=== PATIENT | male | born 1955 | race Caucasian/White ===

== ENCOUNTER 2016-11-05 05:55 | Outpatient (CLI) | payer BC ==
[~2016-11-05] VITALS: Ht 177.8 cm; Wt 93.0 kg
[2016-11-05] MEDS ORDERED: HYDR-3812 PO (11:01)
[2016-11-05] MEDS ORDERED: TRAZ150T72 PO (11:01)
[2016-11-05] MEDS ORDERED: ALPR0.5T PO (11:01)
[2016-11-05] MEDS ORDERED: VIT1CAPS9 PO (11:01)
[2016-11-05] MEDS ORDERED: VITA-189 PO (11:01)
[2016-11-05] MEDS ORDERED: NAPR-1033 PO (11:01)
[2016-11-05] MEDS ORDERED: TEMA30CA PO (11:01)
[2016-11-05] MEDS ORDERED: CETI10TA20 PO (11:01)
[2016-11-05] MEDS ORDERED: OMEG100032 PO (11:01)
[2016-11-05] MEDS ORDERED: NF-NI250ER PO (11:01)
[2016-11-05] MEDS ORDERED: LANS15CA5 PO (11:01)
[2016-11-05] MEDS ORDERED: LISI10TA2 PO (11:01)
[2016-11-05] MEDS ORDERED: ASPI-586 PO (11:01)
== END 2016-11-05 11:02 ==
LOC: PREOP 05:55
PROVIDERS: ATTEND Otolaryngology Otolaryngology/Facial Plastic Surgery
DX: Z01.818 Encounter for other preprocedural examination (principal); L98.9 Disorder of the skin and subcutaneous tissue, unspecified

== ENCOUNTER 2016-11-07 05:53 | Day surgery (SDC) | payer BC, OTHER ==
[~2016-11-07] VITALS: Ht 177.8 cm; Wt 93.0 kg
[~2016-11-07 05:53] MED LIST: ALPR0.5T PO; ASPI-586 PO; CETI10TA20 PO; HYDR-3812 PO; LANS15CA5 PO; LISI10TA2 PO; NAPR-1033 PO; NF-NI250ER PO; OMEG100032 PO; TEMA30CA PO; TRAZ150T72 PO; VIT1CAPS9 PO; VITA-189 PO
[2016-11-07] MEDS ORDERED: LACTATED RINGERS 1,000 ML IV PRN (06:27)
--- NOTE | 2016-11-07 06:32 | Progress Note-Pre Operative ---
Pre-Operative Progress Note H&P Reviewed The H&P was reviewed, patient examined and no changes noted. Date Seen by Provider: Nov 07, 2016 Time Seen by Provider: 06:30 Date H&P Reviewed: Nov 07, 2016 Time H&P Reviewed: :30 Pre-Operative Diagnosis: Left SCalp Lesions TONE PEÑALOZA MD Nov 07, 2016 6:32 am
[2016-11-07 06:45] LABS: BASOPHILS % (AUTO) 0 % (0-10); EOSINOPHILS # (AUTO) 0.4 10^3/uL (0.0-0.3); EOSINOPHILS % (AUTO) 6 % (0-10); LYMPHOCYTES # (AUTO) 2.2 X 10^3 (1.0-4.0); LYMPHOCYTES % (AUTO) 32 % (12-44); MEAN CORPUSCULAR HEMOGLOBIN 32 PG (25-34); MEAN CORPUSCULAR HGB CONC 34 G/DL (32-36); MEAN CORPUSCULAR VOLUME 93 FL (80-99); MEAN PLATELET VOLUME 9.3 FL (7.4-10.4); MONOCYTES # (AUTO) 0.4 X 10^3 (0.0-1.0); MONOCYTES % (AUTO) 6 % (0-12); NEUTROPHILS # (AUTO) 3.8 X 10^3 (1.8-7.8); NEUTROPHILS % (AUTO) 56 % (42-75); PLATELET COUNT 206 10^3/uL (130-400); RED BLOOD COUNT 4.67 10^6/uL (4.35-5.85); RED CELL DISTRIBUTION WIDTH 12.9 % (10.0-14.5); WHITE BLOOD COUNT 6.7 10^3/uL (4.3-11.0)
[2016-11-07] MEDS ORDERED: SEVOFLURANE (ULTANE) 15 ML INHAL SOLN ONE (06:58)
[2016-11-07] MEDS ORDERED: LIDOCAINE PF 2% 5 ML (XYLOCAINE) VIAL ONE (06:58)
[2016-11-07] MEDS ORDERED: proPOfol 200 MG/20 ML (DIPRIVAN) VIAL IV ONE (06:58)
[2016-11-07] MEDS ORDERED: DEXAMETHASONE PF 10 MG/ML (DECADRON) VIAL ONE (06:58)
[2016-11-07] MEDS ORDERED: fentaNYL INJECTION 100 MCG/2 ML AMP ONE (06:58)
[2016-11-07] MEDS ORDERED: ONDANSETRON 4 MG/2 ML (SDV) Z0FRAN ONE (06:58)
[2016-11-07] MEDS ORDERED: MIDAZOLAM 2 MG/2 ML (VERSED) VIAL ONE (06:59)
[2016-11-07 07:02] LABS: ANION GAP 10 MMOL/L (5-14); BLOOD UREA NITROGEN 15 MG/DL (7-18); BUN/CREATININE RATIO 18; CALCIUM 9.2 MG/DL (8.5-10.1); CARBON DIOXIDE 20 MMOL/L (21-32); CHLORIDE 110 MMOL/L (98-107); CREATININE SERUM 0.82 MG/DL (0.60-1.30); GFR ESTIMATED > 60; GLUCOSE 87 MG/DL (70-105); POTASSIUM 4.3 MMOL/L (3.6-5.0); SODIUM 140 MMOL/L (135-145)
[2016-11-07] MEDS ORDERED: LIDOCAINE/EPI 1%-1:200,000 (XYLOCAINE) 30 ML VIAL ONE (07:05)
[2016-11-07 07:13] VITALS: BP 119/76
[2016-11-07] MEDS ORDERED: PHENYLEPHRINE 100 MCG/ML 10 ML (ANESTHESIA) SYR ONE (07:58)
[2016-11-07] MEDS ORDERED: MUPIROCIN 2% OINT 22 GM (BACTROBAN) TUBE ONE (08:13)
--- NOTE | 2016-11-07 08:40 | Progress Note-Post Operative ---
Post-Operative Progess Note Surgeon (s)/Tech Writer (s) Surgeon TONE PEÑALOZA MD Tech Writer n/a Pre-Operative Diagnosis Left SCalp Lesions Post-Operative Diagnosis same Post-Op Procedure Note Date of Procedure: Nov 07, 2016 Name of Procedure Performed: Excision of Left Scalp Lesions with INtermediate REpair Description & Findings Description and Findings: n/a Anesthesia Type get Estimated Blood Loss minimal Packing none. Specimen(s) collected/removed left post scalp lesion-basal cell with clear margins ant scalp-clinically lipoma TONE PEÑALOZA MD Nov 07, 2016 8:40 am
[2016-11-07] MEDS ORDERED: ACETAMINOPHEN 325 MG TABLET/CAPLET (TYLENOL) PO PRN (08:45)
[2016-11-07] MEDS ORDERED: HYDROcodone/APAP 5 MG/325 MG (LORTAB) TAB PO PRN (08:45)
[2016-11-07] MEDS ORDERED: ONDANSETRON 4 MG/2 ML (SDV) Z0FRAN IVP PRN (09:00)
[2016-11-07] MEDS ORDERED: morphine INJ 10 MG/ML 1ML (SYR OR VIAL) IVP PRN (09:00)
[2016-11-07 09:35] VITALS: BP 122/75
[2016-11-07] MEDS ORDERED: HYDR-3812 PO (09:46)
[2016-11-07 10:05] VITALS: BP 119/74
[2016-11-07 10:09] VITALS: BP 119/74
== END 2016-11-07 10:10 | disposition home or self-care (01) ==
LOC: SDC 05:53
PROVIDERS: ATTEND Otolaryngology Otolaryngology/Facial Plastic Surgery
DX: C44.41 Basal cell carcinoma of skin of scalp and neck (principal); D17.0 Benign lipomatous neoplasm of skin and subcutaneous tissue of head, face and neck; I10 Essential (primary) hypertension; Z79.899 Other long term (current) drug therapy
CPT/HCPCS: 36415; 80048; 85025; 87081

== ENCOUNTER 2017-07-28 05:37 | Outpatient (CLI) | payer BC ==
[~2017-07-28] VITALS: Ht 177.8 cm; Wt 93.0 kg
[~2017-07-28 05:37] MED LIST changes: +ACHD5005 PO; -HYDR-3812 PO
[2017-07-28] MEDS ORDERED: TRAZ-28 PO (10:03)
[2017-07-28] MEDS ORDERED: EZET10TA5 PO (10:03)
[2017-07-28] MEDS ORDERED: MELA1TAB16 PO (10:03)
== END 2017-07-28 10:13 ==
LOC: PREOP 05:37
PROVIDERS: ATTEND Urology
DX: Z01.818 Encounter for other preprocedural examination (principal); C61 Malignant neoplasm of prostate; Z79.82 Long term (current) use of aspirin

== ENCOUNTER 2017-08-01 09:59 | Day surgery (SDC) | payer BC ==
[~2017-08-01] VITALS: Ht 177.8 cm; Wt 93.0 kg
[~2017-08-01 09:59] MED LIST changes: +EZET10TA5 PO; +MELA1TAB16 PO; +TRAZ-28 PO
[2017-08-01 10:30] VITALS: BP 106/72
[2017-08-01] MEDS ORDERED: fentaNYL INJECTION 100 MCG/2 ML AMP ONE (10:51)
[2017-08-01] MEDS ORDERED: MIDAZOLAM 2 MG/2 ML (VERSED) VIAL ONE (10:52)
[2017-08-01] MEDS ORDERED: LEVOFLOXACIN 500 MG/100 ML IV 100 ML IV ONE (11:00)
--- NOTE | 2017-08-01 11:27 | Progress Note-Pre Operative ---
Pre-Operative Progress Note H&P Reviewed The H&P was reviewed, patient examined and no changes noted. Date Seen by Provider: Aug 01, 2017 Time Seen by Provider: : Date H&P Reviewed: Aug 01, 2017 Time H&P Reviewed: : Pre-Operative Diagnosis: CA PROSTATE AND SCROTAL CYST STUART JAIME MD Aug 01, 2017 11:27 am
--- NOTE | 2017-08-01 11:32 | Discharge Inst-Urology ---
Discharge Inst-Urology Discharge Medications New, Converted, or Re-newed RX: RX on Chart Patient Instructions/Follow Up Plan Discharge with asif and leg bag day time and large bag night time with instructions Office Friday 08/04 at 9am to DC Asif and 2 weeks later to see me, rest till then Increase oral fluids for 48 hours and then as needed. Diet as tolerated. If questions or concerns contact your physician Or seek help at emergency department. STUART JAIME MD Aug 01, 2017 11:32 am
[2017-08-01] MEDS ORDERED: LACTATED RINGERS 1,000 ML IV PRN (13:27)
[2017-08-01] MEDS ORDERED: ROCURONIUM 10 MG/ML 5 ML SYRINGE IV ONE (13:51)
[2017-08-01] MEDS ORDERED: LIDOCAINE PF 2% 5 ML (XYLOCAINE) VIAL ONE (13:51)
[2017-08-01] MEDS ORDERED: proPOfol 200 MG/20 ML (DIPRIVAN) VIAL IV ONE (13:51)
[2017-08-01] MEDS ORDERED: ONDANSETRON 4 MG/2 ML (SDV) Z0FRAN ONE (13:51)
[2017-08-01] MEDS ORDERED: SEVOFLURANE (ULTANE) 15 ML INHAL SOLN ONE ×3 (13:52→14:02)
--- NOTE | 2017-08-01 14:17 | Progress Note-Post Operative ---
Post-Operative Progess Note Surgeon (s)/Trailer Body Assembler (s) Surgeon STUART JAIME MD Trailer Body Assembler: N/A Pre-Operative Diagnosis CA PROSTATE AND SCROTAL CYST Post-Operative Diagnosis SAME Procedure & Operative Findings Date of Procedure 08/01/17 Procedure Performed/Findings EXCISION OF SCROTAL CYST, BRACHYTHERAPY, INSERTION OF PROSTATE RECTAL SPACER AND CYSTOGRAM Anesthesia Type GENERAL Estimated Blood Loss Estimated blood loss (mL): NEGLIGIBLE Specimens/Packing Specimens Removed SCROTAL CYST Packing: N/A STUART JAIME MD Aug 01, 2017 2:17 pm
--- NOTE | 2017-08-01 14:29 | Anesthesia-General Post-Op ---
General Patient Condition Mental Status/LOC: Same as Preop Cardiovascular: Satisfactory Nausea/Vomiting: Absent Respiratory: Satisfactory Pain: Controlled Complications: Absent Post Op Complications Complications None Follow Up Care/Instructions Patient Instructions None needed. Anesthesia/Patient Condition Patient Condition Patient is doing well, no complaints, stable vital signs, no apparent adverse anesthesia problems. No complications reported per nursing. NAIN NESS CRNA Aug 01, 2017 14:29
[2017-08-01] MEDS ORDERED: ONDANSETRON 4 MG/2 ML (SDV) Z0FRAN IVP PRN (14:30)
[2017-08-01] MEDS ORDERED: morphine INJ 10 MG/ML 1ML (SYR OR VIAL) IVP PRN (14:30)
[2017-08-01] MEDS: MEPERIDINE (DEMEROL) INJ 50 MG/ML IVP PRN ×2 (15:05→15:20)
--- NOTE | 2017-08-01 15:37 | OPERATIVE REPORT ---
DATE OF SERVICE: 08/01/2017 PREOPERATIVE DIAGNOSIS: Scrotal sebaceous cyst. POSTOPERATIVE DIAGNOSIS: Scrotal sebaceous cyst. OPERATION PERFORMED: Excision of scrotal sebaceous cyst. SURGEON: Arian Jaime MD ANESTHESIA: General. COMPLICATIONS: None. DESCRIPTION OF PROCEDURE: Under satisfactory general anesthesia, the patient in supine position, genitalia were prepped and draped in usual sterile fashion. The scrotal sebaceous cyst was completely excised without rupturing it. The edges of the scrotum were sutured with a 4-0 chromic catgut interrupted sutures. Dressing was applied. The patient tolerated the procedure and anesthesia well and procedure after that would be combined surgery with Dr. Silverman that we will dictate. Job ID: [id number] DocumentID: [id number] Dictated Date: 08/01/2017 12:47:42 Stockholder Date: 08/01/2017 15:36:37 Dictated By: ARIAN JAIME MD
[2017-08-01 15:50] VITALS: BP 124/70
[2017-08-01 16:20] VITALS: BP 114/70
[2017-08-01 16:50] VITALS: BP 118/76
--- NOTE | 2017-08-01 17:05 | Diagnostic Imaging Report ---
Indication: Brachytherapy with fluoroscopic. Comparison: None available. Findings and Impression: Multiple fluoroscopic images were obtained during brachytherapy. A total of 15.9 seconds or fluoroscopy was utilized for this procedure. Please see operative report for complete details. Dictated by: Dictated on workstation # [id number]
== END 2017-08-01 16:50 | disposition home or self-care (01) ==
LOC: SDC 09:59
PROVIDERS: ATTEND Radiology Radiation Oncology
DX: C61 Malignant neoplasm of prostate (principal); D29.4 Benign neoplasm of scrotum; I10 Essential (primary) hypertension; G57.92 Unspecified mononeuropathy of left lower limb; Z79.82 Long term (current) use of aspirin; Z79.899 Other long term (current) drug therapy
CPT/HCPCS: 76965; 77290; 77318; 77332; 77336; 77470; 77778; 87081

== ENCOUNTER 2017-08-28 10:24 | Outpatient (RCR) | payer BC | END 2017-09-29 | disposition home or self-care (01) | LOC: ONC 10:24 | PROVIDERS: ATTEND Radiology Radiation Oncology | DX: Z51.0 Encounter for antineoplastic radiation therapy (principal); C61 Malignant neoplasm of prostate | CPT/HCPCS: 76873; 77290; 77331; 99205 ==

== ENCOUNTER 2017-09-30 02:45 | Outpatient (RCR) | payer BC ==
[~2017-09-30 02:45] MED LIST changes: +TRAZ-189 PO; -TRAZ-28 PO
== END 2017-12-29 | disposition home or self-care (01) ==
LOC: ONC 02:45
PROVIDERS: ATTEND Radiology Radiation Oncology
DX: C61 Malignant neoplasm of prostate (principal)
CPT/HCPCS: 77295; 77336

== ENCOUNTER → 2019-04-15 | Outpatient (CLI) | payer BC ==
[~2019-04-15] MED LIST changes: +OCUVITE SOFTGE1 EACH PO; -TRAZ-189 PO; +TRAZ-222 PO; -VIT1CAPS9 PO
[2019-04-15 10:41] LABS: HEMOGLOBIN 14.7 G/DL (13.3-17.7); WHITE BLOOD COUNT 6.2 10^3/uL (4.3-11.0)
[2019-04-15 10:42] LABS: ALKALINE PHOSPHATASE 64 U/L (40-136); BILIRUBIN,TOTAL 0.5 MG/DL (0.1-1.0); BUN/CREATININE RATIO 14; CALCIUM 9.5 MG/DL (8.5-10.1); CARBON DIOXIDE 26 MMOL/L (21-32); CHLORIDE 104 MMOL/L (98-107); CREATININE SERUM 0.92 MG/DL (0.60-1.30); GFR ESTIMATED > 60; GLUCOSE 109 MG/DL (70-105); MEAN PLATELET VOLUME 9.1 FL (7.4-10.4); POTASSIUM 4.4 MMOL/L (3.6-5.0); RED CELL DISTRIBUTION WIDTH 12.7 % (10.0-14.5); SODIUM 141 MMOL/L (135-145)
[2019-04-15 10:43] LABS: ALANINE AMINOTRANSFERASE 18 U/L (0-55); TOTAL PROTEIN 6.1 GM/DL (6.4-8.2)
== END ==
LOC: LAB FS 08:31
PROVIDERS: ATTEND Urology
DX: C61 Malignant neoplasm of prostate (principal)
CPT/HCPCS: 36415; 80053; 84153; 84403; 85027

== ENCOUNTER 2019-07-29 14:05 | Emergency (ER) | payer BC ==
[~2019-07-29] VITALS: Ht 180.4 cm; Wt 93.0 kg
[~2019-07-29 14:05] MED LIST changes: -CETI10TA20 PO; +CETI10TA21 PO; +EZET10TA17 PO; -EZET10TA5 PO; -NF-NI250ER PO; -TRAZ-222 PO; +TRZ50T PO; +[UNRECOGNIZED DRUG - CODE] PO
[2019-07-29] MEDS ORDERED: ASPIRIN 81 MG CHEW (CHILDREN'S ASA) PO ONE (14:30)
--- NOTE | 2019-07-29 14:39 | ED Respiratory ---
General Chief Complaint: Respiratory Problems Stated Complaint: SOA Nursing Triage Note: Pt amb to [facility] with c/o SOA et cough. Pt reports on 07/25/19 he was swabbed for COVID-19 at [facility] in [place] et is awaiting results. Pt reports low grade fever on 07/24/19 et 07/25/19, but denies fever since. Pt reports while at [facility] on 07/25/19 he was swabbed for inlfuenza et strep throat with results coming back negative. Initial SPO2 96% via RA. Pt reports increase in moist, cough at HS, upon rise, et throughout evenings. A&OX4. Source: patient Exam Limitations: no limitations History of Present Illness Date Seen by Provider: Jul 29, 2019 Time Seen by Provider: 14:20 Initial Comments This 64 year old gentleman presents to the ER with primary complaint of shortness of breath and cough. He reports fever on July 23 and . He was swabbed for strep and influenza at [facility] on the . Subsequent COVID-19 swab is still pending. He developed some chest tightness and discomfort in the right chest yesterday. That seems to be improved today. At present he is afebrile but mildly tachycardic. He feels mildly short of breath, especially with exertion. Allergies and Home Medications Allergies Coded Allergies: Penicillins (Verified Allergy, Unknown, RASH, 11/05/16) latex (Verified Allergy, Unknown, RASH, 11/05/16) Home Medications Alprazolam 0.5 Mg Tablet, 0.5 MG PO TID PRN for ANXIETY, (Reported) Cetirizine HCl 10 Mg Tablet, 10 MG PO HS, (Reported) Ezetimibe 10 Mg Tablet, 10 MG PO DAILY, (Reported) Lansoprazole 15 Mg Capsule.dr, 15 MG PO DAILY, (Reported) Lisinopril 10 Mg Tablet, 10 MG PO DAILY, (Reported) Melatonin/Pyridoxine HCl (B6) 1 Each Tablet, 5 MG PO HS, (Reported) Naproxen Sodium 220 Mg Tablet, 440 MG PO DAILY, (Reported) take 2 (220mg) tabs Niacin 250 Mg Tablet.sa, 500 MG PO HS, (Reported) take 2 (250mg) tabs Seneca-3/Dha/Epa/Fish Oil 1,000 Mg Capsule, 2,000 MG PO BID, (Reported) take 2 (1,000mg) tabs Temazepam 30 Mg Capsule, 30 MG PO HS PRN for INSOMNIA, (Reported) Trazodone HCl 50 Mg Tablet, 75 MG PO HS, (Reported) take 1 1/2 of 50mg tab for 75mg total Vit C/Vit E/Lutein/Min/Seneca-3 1 Each Capsule, 1 EACH PO DAILY, (Reported) Vitamin B Complex 1 Each Tablet, 1 EACH PO DAILY, (Reported) Patient Home Medication List Home Medication List Reviewed: Yes Review of Systems Review of Systems Constitutional: see HPI EENTM: no symptoms reported Respiratory: see HPI Cardiovascular: see HPI Gastrointestinal: no symptoms reported Genitourinary: no symptoms reported Musculoskeletal: no symptoms reported Skin: no symptoms reported Psychiatric/Neurological: No Symptoms Reported Hematologic/Lymphatic: No Symptoms Reported Immunological/Allergic: no symptoms reported Past Wbwjqzn-Tcropq-Azpkpu Hx Past Med/Social Hx: Reviewed and Corrections made Patient Social History Recent Foreign Travel: No Contact w/Someone Who Travel: No Recent Infectious Disease Expo: No Recent Hopitalizations: No Immunizations Up To Date Date of Influenza Vaccine: Jan 27, 2017 Seasonal Allergies Seasonal Allergies: Yes Past Medical History Surgeries: Yes Tonsillectomy, Vasectomy Respiratory: No Cardiac: Yes High Cholesterol, Hypertension Neurological: No Genitourinary: Yes Prostate Problems Gastrointestinal: No Musculoskeletal: Yes Arthritis Endocrine: No HEENT: No Cancer: Yes Prostate Did You Recieve Any Treatments: Yes What Type of Treatment Did You: Radiation (brachytherapy) Psychosocial: Yes Sleep Difficulties Physical Exam Vital Signs - First Documented 07/29/19 14:05 Temp 36.9 Pulse 98 Resp 20 B/P (MAP) 128/93 (105) Pulse Ox 96 O2 Delivery Room Air Capillary Refill : Less Than 3 Seconds Height: 5'10.00" Weight: 205lbs. 0.0oz. [id number]; 28.00 BMI Method: General Appearance: WD/WN, no apparent distress HEENT: PERRL/EOMI, normal ENT inspection, pharynx normal Neck: normal inspection Respiratory: lungs clear, normal breath sounds, no respiratory distress, no accessory muscle use Cardiovascular: no edema, no murmur, tachycardia Gastrointestinal: normal bowel sounds, non tender, soft Extremities: non-tender, normal inspection, no pedal edema, no calf tenderness Neurologic/Psychiatric: performance improvement director II-XII nml as tested, no motor/sensory deficits, alert, normal mood/affect, oriented x 3 Skin: normal color, warm/dry Progress/Results/Core Measures Suspected Sepsis Recent Fever Within 48 Hours: No Infection Criteria Present: Suspected New Infection New/Unexplained Altered Menta: No Sepsis Screen: No Definite Risk SIRS Temperature: Pulse: 98 Respiratory Rate: 20 Laboratory Tests 07/29/19 14:34: White Blood Count 8.9 Blood Pressure 128 /93 Mean: 105 Laboratory Tests 07/29/19 14:34: Creatinine 0.88, INR Comment 1.1, Platelet Count 230, Total Bilirubin 0.4 Results/Orders Lab Results Laboratory Tests Test 07/29/19 14:34 Range/Units White Blood Count 8.9 4.3-11.0 10^3/uL Red Blood Count 5.11 4.35-5.85 10^6/uL Hemoglobin 15.8 13.3-17.7 G/DL Hematocrit 46 40-54 % Mean Corpuscular Volume 91 80-99 FL Mean Corpuscular Hemoglobin 31 25-34 PG Mean Corpuscular Hemoglobin Concent 34 32-36 G/DL Red Cell Distribution Width 13.8 10.0-14.5 % Platelet Count 230 130-400 10^3/uL Mean Platelet Volume 9.0 7.4-10.4 FL Neutrophils (%) (Auto) 69 42-75 % Lymphocytes (%) (Auto) 20 12-44 % Monocytes (%) (Auto) 7 0-12 % Eosinophils (%) (Auto) 4 0-10 % Basophils (%) (Auto) 0 0-10 % Neutrophils # (Auto) 6.1 1.8-7.8 X 10^3 Lymphocytes # (Auto) 1.8 1.0-4.0 X 10^3 Monocytes # (Auto) 0.6 0.0-1.0 X 10^3 Eosinophils # (Auto) 0.3 0.0-0.3 10^3/uL Basophils # (Auto) 0.0 0.0-0.1 10^3/uL Erythrocyte Sedimentation Rate 9 0-30 MM/HR Prothrombin Time 14.5 12.2-14.7 SEC INR Comment 1.1 0.8-1.4 Activated Partial Thromboplast Time 30 24-35 SEC D-Dimer 0.42 0.00-0.49 UG/ML Sodium Level 139 135-145 MMOL/L Potassium Level 4.2 3.6-5.0 MMOL/L Chloride Level 106 98-107 MMOL/L Carbon Dioxide Level 21 21-32 MMOL/L Anion Gap 12 5-14 MMOL/L Blood Urea Nitrogen 12 7-18 MG/DL Creatinine 0.88 0.60-1.30 MG/DL Estimat Glomerular Filtration Rate > 60 BUN/Creatinine Ratio 14 Glucose Level 100 70-105 MG/DL Calcium Level 9.2 8.5-10.1 MG/DL Corrected Calcium 9.1 8.5-10.1 MG/DL Magnesium Level 1.9 1.6-2.4 MG/DL Total Bilirubin 0.4 0.1-1.0 MG/DL Aspartate Amino Transf (AST/SGOT) 18 5-34 U/L Alanine Aminotransferase (ALT/SGPT) 18 0-55 U/L Alkaline Phosphatase 60 40-136 U/L Lactate Dehydrogenase 238 H 125-220 U/L Myoglobin 43.3 10.0-92.0 NG/ML Troponin I < 0.028 <0.028 NG/ML C-Reactive Protein High Sensitivity 1.73 H 0.00-0.50 MG/DL Total Protein 6.9 6.4-8.2 GM/DL Albumin 4.1 3.2-4.5 GM/DL Procalcitonin 0.02 <0.10 NG/ML My Orders Orders - FEDE ALONSO MD Ferritin (07/29/19 14:30) Fibrin Degradation Products (07/29/19 14:30) Procalcitonin (Pct) (07/29/19 14:30) Hs C Reactive Protein (07/29/19 14:30) Erythrocyte Sedimentation Rate (07/29/19 14:30) Cbc With Automated Diff (07/29/19 14:30) Magnesium (07/29/19 14:30) Chest 1 View, Ap/Pa Only (07/29/19 14:30) Ekg Tracing (07/29/19 14:30) Comprehensive Metabolic Panel (07/29/19 14:30) Myoglobin Serum (07/29/19 14:30) Protime With Inr (07/29/19 14:30) Partial Thromboplastin Time (07/29/19 14:30) O2 (07/29/19 14:30) Monitor-Rhythm Ecg Trace Only (07/29/19 14:30) Lipid Panel (07/30/19 06:00) Ed Iv/Invasive Line Start (07/29/19 14:30) Troponin I (07/29/19 14:30) Aspirin Chewable Tablet (Baby Aspirin Ch (07/29/19 14:30) LDH (07/29/19 14:40) Medications Given in ED Current Medications Medications Dose Ordered Sig/Gonzalez Route Start Time Stop Time Status Last Admin Dose Admin Aspirin 324 mg ONCE ONCE PO 07/29/19 14:30 07/29/19 14:32 DC 07/29/19 15:03 324 MG Vital Signs/I&O 07/29/19 07/29/19 14:05 15:08 Temp 36.9 Pulse 98 92 Resp 20 19 B/P (MAP) 128/93 (105) 122/82 (95) Pulse Ox 96 95 O2 Delivery Room Air Room Air Capillary Refill : Less Than 3 Seconds Blood Pressure Mean: 105 Progress Note : Progress Note Workup was relatively unremarkable. He had no evidence of pneumonia. Oxygen saturations stayed 92 percent and above throughout his ER stay. Symptoms were actually improved from yesterday. His COVID-19 testing was still pending. He did have some wheezing on forced expiration. He has a prescription on file for an albuterol inhaler which he intends to fill and use as needed. Patient was advised to follow-up with his primary care provider regarding the right bundle branch block on his EKG. He reports he was part of a post prostate cancer cardiology study a few years ago and there was no issue with his cardiac health at that time. ECG Initial ECG Impression Date: Jul 29, 2019 Initial ECG Impression Time: 15:03 Initial ECG Rate: 98 Initial ECG Rhythm: S.Tach Comment Sinus tachycardia with right bundle branch block. No ischemic ST elevation or depression. Diagnostic Imaging Diagonstic Imaging: Xray Plain Films/CT/US/NM/MRI: chest Comments Chest x-ray viewed by me and report reviewed. See report below: NAME: STEPHAN JOHNSON [facility] REC#: [id number] PT STATUS: REG ER : 1955 PHYSICIAN: FEDE ALONSO MD ADMIT DATE: 07/29/19/ER Draft Date of Exam:07/29/19 CHEST 1 VIEW, AP/PA ONLY Indication: Shortness of breath and cough. Time of exam 3:23 PM No prior studies are available for comparison. The heart size is normal. The pulmonary vascularity is unremarkable. The lungs are clear. No infiltrate, effusion or pneumothorax is detected. Impression: No acute cardiopulmonary process is detected. Dictated on workstation # [id number] Dict: 07/29/19 1537 Trans: 07/29/19 1537 [facility] [id number] Interpreted by: HUDSON SHAFFER MD Departure Impression Primary Impression: Shortness of breath Additional Impressions: Acute chest pain Right bundle branch block Disposition: HOME, SELF-CARE Condition: Improved Departure-Patient Inst. Decision time for Depature: 15:49 Referrals: ISABELL LOWE MD (PCP/Family) Primary Care Physician Patient Instructions: COVID19, Chest Pain Add. Discharge Instructions: Drink plenty of clear liquids to stay well-hydrated. Take Tylenol (acetaminophen) up to 1000 mg every 6 hours as needed for pain or fever. Return to care if you have worsening of shortness of breath or other symptoms. When you are over this acute illness, please follow-up with your primary care provider to discuss your EKG and right bundle branch block. All discharge instructions reviewed with patient and/or family. Voiced understanding. FEDE ALONSO MD Jul 29, 2019 14:39
[2019-07-29 14:55] LABS: BASOPHILS % (AUTO) 0 % (0-10); EOSINOPHILS # (AUTO) 0.3 10^3/uL (0.0-0.3); EOSINOPHILS % (AUTO) 4 % (0-10); HEMATOCRIT 46 % (40-54); HEMOGLOBIN 15.8 G/DL (13.3-17.7); LYMPHOCYTES # (AUTO) 1.8 X 10^3 (1.0-4.0); LYMPHOCYTES % (AUTO) 20 % (12-44); MEAN CORPUSCULAR HEMOGLOBIN 31 PG (25-34); MEAN CORPUSCULAR HGB CONC 34 G/DL (32-36); MEAN CORPUSCULAR VOLUME 91 FL (80-99); MONOCYTES # (AUTO) 0.6 X 10^3 (0.0-1.0); MONOCYTES % (AUTO) 7 % (0-12); NEUTROPHILS # (AUTO) 6.1 X 10^3 (1.8-7.8); NEUTROPHILS % (AUTO) 69 % (42-75); PLATELET COUNT 230 10^3/uL (130-400); RED CELL DISTRIBUTION WIDTH 13.8 % (10.0-14.5); WHITE BLOOD COUNT 8.9 10^3/uL (4.3-11.0)
[2019-07-29 15:04] LABS: INR 1.1 (0.8-1.4); PROTHROMBIN TIME PATIENT 14.5 SEC (12.2-14.7)
[2019-07-29 15:08] VITALS: BP 122/82
[2019-07-29 15:13] LABS: ALANINE AMINOTRANSFERASE 18 U/L (0-55); ALBUMIN 4.1 GM/DL (3.2-4.5); ALKALINE PHOSPHATASE 60 U/L (40-136); BILIRUBIN,TOTAL 0.4 MG/DL (0.1-1.0); BUN/CREATININE RATIO 14; CALCIUM 9.2 MG/DL (8.5-10.1); CARBON DIOXIDE 21 MMOL/L (21-32); CHLORIDE 106 MMOL/L (98-107); CREATININE SERUM 0.88 MG/DL (0.60-1.30); GFR ESTIMATED > 60; GLUCOSE 100 MG/DL (70-105); MAGNESIUM 1.9 MG/DL (1.6-2.4); POTASSIUM 4.2 MMOL/L (3.6-5.0); SODIUM 139 MMOL/L (135-145); TOTAL PROTEIN 6.9 GM/DL (6.4-8.2)
--- NOTE | 2019-07-29 15:38 | Diagnostic Imaging Report ---
Indication: Shortness of breath and cough. Time of exam 3:23 PM No prior studies are available for comparison. The heart size is normal. The pulmonary vascularity is unremarkable. The lungs are clear. No infiltrate, effusion or pneumothorax is detected. Impression: No acute cardiopulmonary process is detected. Dictated by: Dictated on workstation # [id number]
[2019-07-29 15:57] VITALS: BP 125/99
== END 2019-07-29 16:01 | disposition home or self-care (01) ==
LOC: EDUNIT# 14:12 → ER 14:13
DX: R06.02 Shortness of breath (principal); R07.9 Chest pain, unspecified; I45.10 Unspecified right bundle-branch block; E78.00 Pure hypercholesterolemia, unspecified; I10 Essential (primary) hypertension; M19.91 Primary osteoarthritis, unspecified site; Z85.46 Personal history of malignant neoplasm of prostate; Z92.3 Personal history of irradiation
CPT/HCPCS: 36415; 71045; 80053; 82728; 83615; 83735; 83874; 84145; 84484; 85025; 85379; 85610; 85652; 85730; 86141; 93041

== ENCOUNTER → 2019-08-03 | Outpatient (CLI) | payer BC ==
--- NOTE | 2019-08-03 15:09 | Diagnostic Imaging Report ---
INDICATION: Cough and fever. TIME OF EXAM: 2:38 PM. COMPARISON: Correlation is made with the prior chest from 07/29/2019. FINDINGS: The heart size is normal. The pulmonary vascularity is unremarkable. The lungs are clear. No infiltrate, effusion, or pneumothorax is detected. IMPRESSION: No acute cardiopulmonary process is detected. Dictated by: Dictated on workstation # [id number]
== END ==
LOC: RAD FS 14:14
PROVIDERS: ATTEND Nurse Practitioner Family
DX: R06.02 Shortness of breath (principal)
CPT/HCPCS: 71046

== ENCOUNTER → 2019-09-30 | Outpatient (CLI) | payer BC | LOC: LAB FS 09:19 | PROVIDERS: ATTEND Urology | DX: C61 Malignant neoplasm of prostate (principal) | CPT/HCPCS: 36415; 84153; 84403 ==

== ENCOUNTER → 2020-04-13 | Outpatient (CLI) | payer BC ==
[~2020-04-13] MED LIST changes: -CETI10TA21 PO; +CETI10TA49 PO
[2020-04-13 09:31] LABS: HEMOGLOBIN 12.9 G/DL (13.3-17.7); MEAN PLATELET VOLUME 9.4 FL (7.4-10.4); WHITE BLOOD COUNT 5.5 10^3/uL (4.3-11.0)
[2020-04-13 09:48] LABS: BUN/CREATININE RATIO 22; CARBON DIOXIDE 24 MMOL/L (21-32); CHLORIDE 106 MMOL/L (98-107); CREATININE SERUM 0.86 MG/DL (0.60-1.30); GFR ESTIMATED > 60; GLUCOSE 181 MG/DL (70-105); POTASSIUM 4.1 MMOL/L (3.6-5.0); SODIUM 138 MMOL/L (135-145)
[2020-04-13 09:49] LABS: ALANINE AMINOTRANSFERASE 17 U/L (0-55); ALBUMIN 3.7 GM/DL (3.2-4.5); ALKALINE PHOSPHATASE 55 U/L (40-136); BILIRUBIN,TOTAL 0.5 MG/DL (0.1-1.0); CALCIUM 9.4 MG/DL (8.5-10.1); TOTAL PROTEIN 5.9 GM/DL (6.4-8.2)
== END ==
LOC: LAB FS 09:03
PROVIDERS: ATTEND Urology
DX: C61 Malignant neoplasm of prostate (principal)
CPT/HCPCS: 36415; 80053; 84153; 84403; 85027

== ENCOUNTER → 2020-10-12 | Outpatient (CLI) | payer BC ==
[~2020-10-12] MED LIST changes: -LISI10TA2 PO; +LISI10TA25 PO
[2020-10-12 12:19] LABS: HEMATOCRIT 44 % (40-54); HEMOGLOBIN 14.6 G/DL (13.3-17.7); MEAN CORPUSCULAR HEMOGLOBIN 31 PG (25-34)
[2020-10-12 12:20] LABS: MEAN CORPUSCULAR HGB CONC 34 G/DL (32-36); MEAN CORPUSCULAR VOLUME 92 FL (80-99); MEAN PLATELET VOLUME 9.3 FL (7.4-10.4); PLATELET COUNT 206 10^3/uL (130-400)
[2020-10-12 15:43] LABS: CHLORIDE 102 MMOL/L (98-107); POTASSIUM 4.5 MMOL/L (3.6-5.0); SODIUM 134 MMOL/L (135-145)
[2020-10-12 15:44] LABS: CARBON DIOXIDE 26 MMOL/L (21-32)
[2020-10-12 15:45] LABS: BILIRUBIN,TOTAL 0.6 MG/DL (0.1-1.0); BUN/CREATININE RATIO 19; CREATININE SERUM 0.89 MG/DL (0.60-1.30); GFR ESTIMATED > 60; GLUCOSE 96 MG/DL (70-105)
[2020-10-12 15:46] LABS: ALANINE AMINOTRANSFERASE 17 U/L (0-55); ALKALINE PHOSPHATASE 60 U/L (40-136)
[2020-10-12 15:47] LABS: ALBUMIN 3.9 GM/DL (3.2-4.5)
[2020-10-12 15:48] LABS: CALCIUM 9.1 MG/DL (8.5-10.1)
== END ==
LOC: LAB FS 11:22
PROVIDERS: ATTEND Urology
DX: Z85.46 Personal history of malignant neoplasm of prostate (principal)
CPT/HCPCS: 36415; 80053; 84153; 84403; 85027

== ENCOUNTER 2022-06-20 10:56 | Outpatient (RCR) | payer BC | END 2022-06-25 | disposition home or self-care (01) | LOC: ONC 10:56 | PROVIDERS: ATTEND Radiology Radiation Oncology | DX: E29.1 Testicular hypofunction (principal); Z85.46 Personal history of malignant neoplasm of prostate | CPT/HCPCS: 36415; 84153 ==

== ENCOUNTER 2022-12-18 12:46 | Outpatient (RCR) | payer BC | END 2022-12-26 | disposition home or self-care (01) | LOC: ONC 12:46 | PROVIDERS: ATTEND Radiology Radiation Oncology | DX: Z12.5 Encounter for screening for malignant neoplasm of prostate (principal); Z85.46 Personal history of malignant neoplasm of prostate | CPT/HCPCS: 36415; 84153 ==